=== PATIENT | female | born 1980 | race Asian ===

== ENCOUNTER 2021-04-26 11:51 | Emergency (ER) | payer OTHER, SELFPAY ==
[2021-04-26 12:05] VITALS: BP 113/66; PULSE 82; RESP 16; TEMP 36.2; O2SAT 100
--- NOTE | 2021-04-26 12:13 | ED.FEMALEGU ---
HPI - Female Genitourinary General Chief complaint: Urogenital-Female Stated complaint: Nausea,UTI History of Present Illness HPI Narrative: This is a 40 year old female that come in complaining of pain to her vaginal area which patient associates to a possible urinary tract infection. Patient denies a possibility for STD. Patient states she is and her and her use condoms. Patient states that she is having some vaginal discharge she just got off of her menstrual cycle and she is also nauseate. Patient states that she just got a iron infusion due to low ferritin level. Patient denies any fevers and states that the vaginal discharge is not foul smelling just more than usual and she is not ovulating Related Data Allergies Allergy/AdvReac Type Severity Reaction Status Date / Time No Known Allergies Allergy Verified 04/26/21 12:18 Review of Systems Review of Systems: Vaginal pain, All systems reviewed & are unremarkable except as noted in HPI and below PMFSH Comments At time as signature, I have reviewed and agree with nursing past medical, social, surgical and family history. Please see nursing chart for further information. There is no relevant family history pertinent to the presenting complaint. Exam Narrative: GENERAL:Well-appearing, well-nourished, and in no acute distress. HEAD:Normocephalic EYES: PERRLA ENT: Mucous membranes moist. CHEST: Clear to auscultation. No respiratory distress. ABDOMEN: Soft, nontender, nondistended, normal active bowel sounds. femalgential pt defers and declines a vaginal exam. Pt swabs herself in the bathroom urine is positive for blood EXTREMITIES: Normal range of motion. No edema. SKIN: Warm, dry, no rash. NEURO: No focal deficits. Alert and oriented x3. Course ACCOUNT AUDITOR/PA Physician Supervision Patient declined vaginal exam pt self swabbed self for BV Vital Signs Vital signs: Vital Signs Temperature 97.2 F L 04/26/21 12:05 Pulse Rate 82 04/26/21 12:05 Respiratory Rate 16 04/26/21 12:05 Blood Pressure 113/66 04/26/21 12:05 Pulse Oximetry 100 04/26/21 12:05 Temperature 97.2 F L 04/26/21 12:05 Pulse Rate 82 04/26/21 12:05 Respiratory Rate 16 04/26/21 12:05 Blood Pressure 113/66 04/26/21 12:05 Pulse Oximetry 100 04/26/21 12:05 MDM - Female Genitourinary Differential Diagnosis Differential diagnosis: Likely urinary tract infection, bacterial vaginosis, trichomoniasis, vaginitis and cystitis Lab Data Labs: Urine Glucose Negative Reference Range: Negative Urine Bilirubin Negative Reference Range: Negative Urine Ketone Negative Reference Range: Negative Urine Specific Lily 1.015 Reference Range:1.001-1.035 Urine Blood Trace Reference Range: Negative * * Urine pH 6.5 Reference Range: 5.0-9.0 Urine Protein Negative Reference Range: Negative Urine Urobilinogen 0.2 Reference Range: 0.2-1.0 Urine Nitrate Negative Reference Range: Negative Urine Leukocyte Negative Reference Range: Negative Urine Color Yellow Reference Range: Yellow Urine Characteristics Clear Urine Charact
== END 2021-04-26 12:39 | disposition home or self-care (01) ==
PROVIDERS: Emergency Provider Nurse Practitioner Family
DX: N76.0 Acute vaginitis (principal); R11.2 Nausea with vomiting, unspecified
CPT/HCPCS: 81003; 87070; 99203; G0463